=== PATIENT | female | born 1990 ===

== ENCOUNTER 2020-07-01 19:34 | Outpatient (CLI) | payer OTHER ==
[2020-07-01] MEDS ORDERED: PRENATAL TABLE1 EAC1 PO (19:52)
== END 2020-07-01 20:10 | disposition home or self-care (01) ==
LOC: OBS/DEL 19:34
PROVIDERS: ATTEND Obstetrics & Gynecology
DX: O47.1 False labor at or after 37 completed weeks of gestation (principal)

== ENCOUNTER 2020-07-04 07:42 | Inpatient (IN) | payer OTHER ==
[~2020-07-04] VITALS: Ht 157.5 cm; Wt 82.1 kg
[~2020-07-04 07:42] MED LIST: PRENATAL TABLE1 EAC1 PO
== END 2020-07-06 14:38 | DRG 807 ==
LOC: LDR 07:42 → OB/GYN 07:42
PROVIDERS: ADMIT Obstetrics & Gynecology; ATTEND Obstetrics & Gynecology
PROC: 10E0XZZ Delivery of Products of Conception, External Approach (ICD-10-PCS; principal; 2020-07-04)
PROC: 4A1HXFZ Monitoring of Products of Conception, Cardiac Rhythm, External Approach (ICD-10-PCS; 2020-07-04)
DX: O80 Encounter for full-term uncomplicated delivery (principal); Z37.0 Single live birth; Z3A.38 38 weeks gestation of pregnancy